=== PATIENT | female | born 1985 | race Caucasian/White ===

== ENCOUNTER 2017-01-05 12:25 | Emergency (ER) | payer MEDICAID ==
--- NOTE | 2017-01-05 12:49 | ER PHYSICIAN DOCUMENTATION ---
Physician Documentation [facility] Name:Katia Oconnell Age:31 yrs Sex:Female :1985 Arrival Date:01/05/2017 Time:12:25 Bed2 Private MD:Fernandez Arcos ED, Chris Disposition: 01/05/17 12:39 Discharged to Home/Self Care. Impression: Peritonsillar Abscess - : Right Possible. - Condition is Good. - Discharge Instructions: PERITONSILLAR ABSCESS. - Medical Reconciliation form form. - Follow up: Private Physician; When: Today; Reason: Recheck today's complaints, Continuance of care. - Problem is an ongoing problem. - Symptoms are unchanged. - Notes: Go to [facility] Emergency Department for evaluation of your throat. You may need a CT Scan of your neck and ENT consultation. Stable for Private vehicle transport. HPI: 01/05 12:30 This 31 yrs old Female presents to ER via Private Vehicle with complaints of cd Worsening Sore Throat. 12:30 The patient presents with sore throat. The patient describes throat pain as constant. cd Onset: The symptom(s)/episode began/occurred acutely, 4 day(s) ago. Severity of symptoms: At their worst the symptoms were severe, in the emergency department the symptoms are unchanged. Modifying factors: Patient's oral intake status: limited fluid intake. Associated signs and symptoms: Pertinent positives: dysphagia, fever, Pertinent negatives rhinorrhea. Patient was dx'd with Strep Throat 4 days ago. She was placed on Amoxicillin and Prednisone. It has worsened especially on the right side. 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 Amoxicillin Oral 2. Prednisone Oral - PMHx: None; - PSHx: None; - Tetanus: unknown. - Ebola Screening: : No symptoms or risks identified at this time. . - Immunization history: Flu Vaccine None. - Social history: Smoking status: Patient uses tobacco products, current every day smoker. Patient uses marijuana Patient/guardian denies using alcohol. ROS: 12:40 Eyes: Negative for injury, pain, redness, discharge, blurry vision and loss of vision. cd Neck: Negative for injury, pain, stiffness and swelling. 12:40 Respiratory: Negative for shortness of breath, dyspnea on exertion, cough, sputum cd production, wheezing, hemoptysis and pleuritic chest pain. 12:40 Constitutional: Positive for fever, malaise, poor PO intake, Negative for body aches, chills. 12:40 ENT: Positive for difficulty swallowing, sore throat, Negative for rhinorrhea, sinus congestion, sinus pain. 12:40 All other systems are negative. Exam: 12:40 Eyes: Pupils equal round and reactive to light, extra-ocular motions intact. Lids and cd lashes normal. Conjunctiva and sclera are non-icteric and not injected. Cornea within normal limits. Periorbital areas with no swelling, redness, or edema. 12:40 Constitutional: The patient appears alert, awake, non-diaphoretic, non-toxic, well developed, well nourished, anxious, in obvious distress, moderately distressed. 12:40 ENT: Mouth: Oral mucosa: dry, Posterior pharynx: Airway: normal, no evidence of obstruction, Tonsils: bilaterally enlarged, with erythema, with exudate, Right tonsil is much larger, Uvula: midline, swelling, that is marked, erythema, that is marked, exudate, that is moderate, peritonsillar mass, is noted on the right, pooling of secretions, is not appreciated. 12:40 Neck: External neck: is normal, ROM/movement: is normal. 12:40 Respiratory: the patient does not display signs of respiratory distress, Respirations: normal, Breath sounds: are normal. Vital Signs: 12:38 BP 143 / 95; Pulse 98; Resp 20 S; Temp 98.7; Pulse Ox 95% on R/A; Weight 63.5 kg; ma Height 5 ft. 7 in. (170.18 cm) (R); Pain 8/10; 12:38 Body Mass Index 21.93 (63.50 kg, 170.18 cm) ma MDM: 12:30 Data interpreted: Pulse oximetry: on room air is 98 %. Interpretation: normal. cd Counseling: I had a detailed discussion with the patient and/or guardian regarding: the historical points, exam findings, and any diagnostic results supporting the discharge/admit diagnosis, the need for outpatient follow up, for a referral to a specialist, an ENT specialist. 12:38 Patient medically screened. cd 12:40 Data reviewed: vital signs, nurses notes, old medical records, and as a result, I will cd discharge patient, and send the patient to [facility] for ENT evaluation of a Right Peritonsillar abscess. CT scanner is down. No ENT available in [place]. Patient is stable for private vehicle transport. Dispensed Medications: No medications were administered Signatures: Claritza Gallagher, Omega Romero RN, ma, MD MD cd
--- NOTE | 2017-01-05 12:49 | ER NURSING DOCUMENTATION ---
Nurse's Notes [facility] Name:Katia Oconnell Age:31 yrs Sex:Female :1985 Arrival Date:01/05/2017 Time:12:25 Bed2 Private MD:Fernandez Arcos Diagnosis:Peritonsillar Abscess-: Right Possible Presentation: 01/05 12:35 Presenting complaint: Patient states: Pt diagnosed with Strep throat 4 days ago States ma swelling and pain much worse on right side is considerably worse today. Transition of care: Home. 12:35 Acuity: EVGENY 3 ma 12:35 Method Of Arrival: Private Vehicle ma Triage Assessment: 12:37 General: Appears in no apparent distress, Behavior is cooperative. Pain: Complains of ma pain in right buccal mucosa and right aspect of posterior pharynx. EENT: Reports difficulty swallowing. 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 Amoxicillin Oral 2. Prednisone Oral - PMHx: None; - PSHx: None; - Tetanus: unknown. - Ebola Screening: : No symptoms or risks identified at this time. . - Immunization history: Flu Vaccine None. - Social history: Smoking status: Patient uses tobacco products, current every day smoker. Patient uses marijuana Patient/guardian denies using alcohol. Screenin:39 Infectious Disease Risk None. Abuse screen: Denies threats or abuse. Nutritional ma screening: No deficits noted. Assessment: 12:40 Respiratory: Airway is patent. ma 12:41 Respiratory: Respiratory effort is even, unlabored, ma 12:41 EENT: Throat has enlarged tonsils Right side with swelling past midline. ma Vital Signs: 12:38 BP 143 / 95; Pulse 98; Resp 20 S; Temp 98.7; Pulse Ox 95% on R/A; Weight 63.5 kg; ma Height 5 ft. 7 in. (170.18 cm) (R); Pain 8/10; 12:38 Body Mass Index 21.93 (63.50 kg, 170.18 cm) oh ED Course: 12:29 Patient arrived in ED. arc 12:29 Fernandez Arcos MD is Private Physician. arc 12:35 Claritza Gallagher RN is Primary Nurse. ma 12:36 Triage completed. ma 12:38 Omega Nunez MD is Attending Physician. cd 12:39 Valuables Given to family. Patient has correct armband on for positive identification. ma Bed in low position. Call light in reach. Adult w/ patient. Administered Medications: No medications were administered Outcome: 12:39 Discharge ordered by . cd 12:47 Discharged to Discharged from [facility] Instructed to go to ER at [facility] Not to be a ma transfer per Dr Nunez 12:47 Condition: stable 12:47 Discharge instructions given to patient, Instructed on discharge instructions, Demonstrated understanding of instructions. 12:48 Patient left the ED. ma Signatures: Claritza Gallagher, MAIA RN Omega Thao MD MD cd Queta, Sue, Reg Reg arc
== END 2017-01-05 12:48 | disposition home or self-care (01) ==
LOC: ER 12:25
DX: J02.0 Streptococcal pharyngitis (principal); E86.0 Dehydration; J35.1 Hypertrophy of tonsils; R13.10 Dysphagia, unspecified; F17.210 Nicotine dependence, cigarettes, uncomplicated; R53.81 Other malaise
CPT/HCPCS: 99281